=== PATIENT | female | born 1970 | race Caucasian/White ===

== ENCOUNTER 2016-03-14 20:38 | Emergency (ER) | payer BC ==
[2016-03-14 22:08] VITALS: BP 140/87
[2016-03-14] MEDS ORDERED: predniSONE TAB* 20 MG PO ONE (23:03)
[2016-03-14] MEDS ORDERED: Hydrocortisone 1% CREAM* 30 GM TUBE TOPICAL ONE (23:03)
[2016-03-14] MEDS ORDERED: diPHENhydraMINE PO* 25 MG PO ONE (23:28)
[2016-03-14] MEDS ORDERED: diPHENhydraMINE PO* 25 MG ONE (23:31)
--- NOTE | 2016-03-15 22:47 | UC ---
Skin Complaint HPI - HPI Summary HPI Summary: total body rash comes and goes over past few weeks. Thought they were flea bites , but has bombed the house to no avail. Very itchy. Will start with a small blister, then get red and swollen and itchy. Blister will ooze. Today awoke with 2 on face. Has tried Benadryl, various topicals, can't get rid of them. Does admit to a lot of stress recently. - History of Current Complaint Chief Complaint: UCRash Time Seen by Provider: 03/14/16 22:48 Stated Complaint: RASH Hx Obtained From: Patient Hx Last Menstrual Period: 02/28/16 Onset/Duration: Gradual Onset, Lasting Weeks Onset Severity: Mild Current Severity: Moderate Pain Intensity: 0 Pain Scale Used: 0-10 Numeric Location: Diffuse Character: Pruritus, Redness, Raised Aggravating: Touch Alleviating: Antihistamines, OTC Creams/Salves Associated Signs & Symptoms: Positive: Negative - Allergy/Home Medications Allergies/Adverse Reactions: Allergies Allergy/AdvReac Type Severity Reaction Status Date / Time No Known Allergies Allergy Verified 03/14/16 21:58 Review of Systems Constitutional: Negative Skin: Rash Eyes: Negative ENT: Negative Respiratory: Negative Cardiovascular: Negative Gastrointestinal: Negative Genitourinary: Negative Motor: Negative Neurovascular: Negative Musculoskeletal: Negative Neurological: Negative Psychological: Negative All Other Systems Reviewed And Are Negative: Yes PMH/Surg Hx/FS Hx/Imm Hx Previously Healthy: Yes - Surgical History Surgical History: Yes Surgery Procedure, Year, and Place: TUBAL LIGATION - Family History Known Family History: Positive: Other - no skin disorders - Social History Occupation: Employed Full-time Lives: With Family Alcohol Use: Weekly Substance Use Type: None Smoking Status (MU): Light Every Day Tobacco Smoker Type: Cigarettes Amount Used/How Often: 1-2 CIGS PER DAY Physical Exam Triage Information Reviewed: Yes Appearance: Well-Appearing, No Pain Distress, Well-Nourished Vital Signs: Initial Vital Signs Temp 98.1 F 03/14/16 21:59 Pulse 93 03/14/16 21:59 Resp 18 03/14/16 21:59 BP 140/87 03/14/16 21:59 Pulse Ox 98 03/14/16 21:59 Vital Signs Reviewed: Yes Eye Exam: Normal ENT Exam: Normal Neck exam: Normal Neck: Positive: Supple Respiratory Exam: Normal Respiratory: Positive: Lungs clear Cardiovascular Exam: Normal Musculoskeletal Exam: Normal Neurological Exam: Normal Psychological Exam: Normal Skin Exam: Other - 10 or 12 blistery lesions in the center of a raised, red welt that vary in size up to 4" across. Two on forehead. They do appear consistent with a brisk immune reaction to a bug bite. Very itchy. The blister oozes clear fluid Course/Dx - Course Course Of Treatment: ?bug bites vs urticaria - Differential Diagnoses - Skin Complaint Differential Diagnoses: Cellulitis, Poison Tamiko - Diagnoses Provider Diagnoses: dermatitis Discharge - Discharge Plan Condition: Stable Disposition: HOME Prescriptions: predniSONE TAB* [Deltasone TAB*] 20 mg PO DAILY #11 tab Patient Education Materials: Dermatitis (ED) Forms: *Work Release Referrals: Tuan Lawrence NP [Primary Care Provider] - John CABALLERO,Arthur Howard [Medical Doctor] - Additional Instructions: Take 50 mg of Benadryl before bed Take the steroids as directed Try putting hydrocortisone cream directly on the spots when they start See Dr. Lopez (Dermatology) if this treatment isn't helpful
== END 2016-03-14 23:40 | disposition home or self-care (01) ==
LOC: UCCORT 20:38
DX: L30.9 Dermatitis, unspecified (principal); F17.210 Nicotine dependence, cigarettes, uncomplicated
CPT/HCPCS: 87070; 87205; 87640; 87641; 99203; A9270-GY; G0463; J7512